=== PATIENT | female | born 1970 | race Caucasian/White ===

== ENCOUNTER → 2016-12-25 | Outpatient (CLI) | payer BC | END | disposition home or self-care (01) | LOC: GMAL 10:36 | PROVIDERS: ATTEND Family Medicine | DX: E55.9 Vitamin D deficiency, unspecified (principal) ==

== ENCOUNTER → 2018-04-20 | Outpatient (CLI) | payer BC | LOC: GMAL 13:03 | PROVIDERS: ATTEND Family Medicine | DX: Z00.01 Encounter for general adult medical examination with abnormal findings (principal); M25.50 Pain in unspecified joint; M10.9 Gout, unspecified ==

== ENCOUNTER 2018-10-12 18:47 | Emergency (ER) | payer BC ==
--- NOTE | 2018-10-12 19:20 | ED.PDOC ---
History of Present Illness - General Time Seen by Provider: 10/12/18 18:54 Source: patient, Vital Signs reviewed Exam Limitations: no limitations Additional Information: 48 YEAR OLD WHITE FEMALE PRESENTS WITH INTERSCAPULAR PAIN NAUSEA AND LOW BLOOD PRESSURE HER BLOOD PRESSURE HAS NEVER RUN THIS LOW IN THE 90S AND LOW 100S SHE TAKES LISINOPRIL 10 MG FOR HTN HER USUAL BLOOD PRESSURE IS IN THE 140S SHE HAS NO CHEST PRESSURE NO SHORTNESS OF BREATH OR DIAPHORESIS HAS NECK SURGERY AN YEAR AGO AND HAS BEEN EXPERIENCING SOME UPPER BACK PAINS SINCE SURGERY - History of Present Illness Timing/Duration: intermittent Severity: moderate Improving Factors: nothing Worsening Factors: movement Associated Symptoms: malaise Allergies/Adverse Reactions: Allergies Meperidine Allergy (Verified 10/12/18 19:05) Home Medications: Ambulatory Orders Lisinopril 10 mg PO DAILY 10/12/18 tiZANidine [Zanaflex] 4 mg PO PRN 10/12/18 Review of Systems - Review of Systems Constitutional: States: no symptoms reported EENTM: States: no symptoms reported Respiratory: States: no symptoms reported Cardiology: States: no symptoms reported Gastrointestinal/Abdominal: States: no symptoms reported Genitourinary: States: no symptoms reported Musculoskeletal: States: no symptoms reported Skin: States: no symptoms reported Neurological: States: no symptoms reported Endocrine: States: no symptoms reported Past Medical History (General) - Patient Medical History Hx Stroke: No Hx Asthma: Yes Hx Congestive Heart Failure: No Hx Hypertension: Yes Hx Diabetes: No Surgical History: cholecystectomy, Hysterectomy - Vaccination History Hx Influenza Vaccination: Yes Hx Pneumococcal Vaccination: No - Social History Hx Tobacco Use: No Family Medical History - Family History Father Family History: Unknown Living Status: Unknown Hx Family Hypertension: Yes Physical Exam - Physical Exam General Appearance: Alert Eye Exam: bilateral normal Ears, Nose, Throat: hearing grossly normal, normal ENT inspection, normal pharynx Neck: non-tender, full range of motion, supple Respiratory: chest non-tender, lungs clear, normal breath sounds, no respiratory distress, no accessory muscle use Cardiovascular/Chest: normal peripheral pulses, regular rate, rhythm, no edema, no gallop Gastrointestinal/Abdominal: normal bowel sounds, non tender, soft, no organomegaly Back Exam: normal inspection, no CVA tenderness, muscle spasm - TENDER MID UPPER BACK Progress - Results/Orders Results/Orders: 23 10 PT FEELING BETTER HER BLOOD PRESSURE IN 110 - 118 NO SYMPTOMS SUGGEST TO HOLD LISINOPRIL AND FOLLOW UP WITH YOUR PCP Departure - Departure Clinical Impression: Chronic hypertension, Adverse drug effect Time of Disposition: 23:27 Disposition: Discharge to Home or Self Care Referrals: Juan Min III, MD [Primary Care Provider] - 1-2 Weeks Home Medications: Ambulatory Orders Lisinopril 10 mg PO DAILY 10/12/18 tiZANidine [Zanaflex] 4 mg PO PRN 10/12/18
[2018-10-12] MEDS: ONDANSETRON INJ 4 MG/2 ML VIAL IV ONE (19:40)
[2018-10-12] MEDS: KETOROLAC TROMETHAMINE INJ 30 MG/ML VIAL IV ONE (19:40)
[2018-10-12] MEDS: SODIUM CHLORIDE 0.9% 1000ML 1,000 ML IVS ONE ×2 (19:45→21:09)
--- NOTE | 2018-10-12 20:51 | CT ---
EXAM DESCRIPTION: CTA Chest CLINICAL HISTORY: 48 years Female CP COMPARISON: None TECHNIQUE: Images were obtained in axial, sagittal, and coronal planes. Intravenous contrast was administered. 3-D MIP imaging was performed in coronal and sagittal projection. Coronal oblique images also submitted. This exam was performed according to our departmental dose-optimization program which includes use of Automated Exposure Control, adjustment of the mA and/or kV according to patient size and/or use of iterative reconstruction technique. FINDINGS: No filling defects pulmonary arteries bilaterally. Study somewhat limited related to bolus timing. No aortic dissection or dilatation. No pericardial or pleural effusions bilaterally. No pneumothorax. No lung parenchymal infiltrates or nodules seen. Mild atelectatic change lower lungs bilaterally. No acute osseous abnormality. Fatty change involving the liver. Prior cholecystectomy. Eventration right hemidiaphragm. IMPRESSION: No evidence for pulmonary embolus. No aortic dissection or dilatation. No infiltrates seen. Electronically signed by: Tori Gomez MD 10/12/2018 8:49 PM CDT
[2018-10-12 23:00] VITALS: TEMP 98.1
[2018-10-12 23:02] VITALS: O2SAT 96
[2018-10-12 23:48] VITALS: BP 118/69
== END 2018-10-12 23:48 | disposition home or self-care (01) ==
LOC: ER 18:47
DX: I10 Essential (primary) hypertension (principal); T50.905A Adverse effect of unspecified drugs, medicaments and biological substances, initial encounter; I95.9 Hypotension, unspecified; R11.0 Nausea; M54.6 Pain in thoracic spine; J45.909 Unspecified asthma, uncomplicated; Z98.890 Other specified postprocedural states; Z79.899 Other long term (current) drug therapy; Z88.8 Allergy status to other drugs, medicaments and biological substances
CPT/HCPCS: 36415; 71275; 80048; 81001; 82550; 82553; 84484; 85025; 85610; 85730; 93005; J1885; J2405; J7030

== ENCOUNTER → 2019-02-07 | Outpatient (CLI) | payer BC | LOC: LAB.O 10:08 | DX: M06.09 Rheumatoid arthritis without rheumatoid factor, multiple sites (principal); M25.40 Effusion, unspecified joint ==